=== PATIENT | male | born 1955 | race Caucasian/White ===

== ENCOUNTER 2021-08-27 11:11 | Emergency (ER) | payer MEDICARE ==
[~2021-08-27] VITALS: Ht 160 cm; Wt 38.6 kg
[2021-08-27] MEDS ORDERED: LISINOPRIL10 MG PO (11:55)
[2021-08-27] MEDS ORDERED: PROAIR HFA8.5 GM INH (11:55)
[2021-08-27 14:57] LABS: ABSOLUTE BASOPHILS 0.1 thou/uL (0.0-0.2); ABSOLUTE EOSINOPHILS 0.1 thou/uL (0.0-0.7); ABSOLUTE MONOCYTES 0.7 thou/uL (0.0-1.2); ABSOLUTE NEUTROPHILS 5.3 thou/uL (1.6-8.1); BASOPHILS 0.8 %; EOSINOPHILS 1.5 %; HEMATOCRIT 39.6 % (42.0-52.0); LYMPHOCYTES 14.1 %; MCH 35.3 pg (26.0-34.0); MCHC 35.2 g/dL (28.0-37.0); MCV 100.2 fL (80.0-100.0); MONOCYTES 9.3 %; MPV 8.2 fl. (7.2-11.1); NUCLEATED RBCS 0 /100WBC; PLATELET COUNT* 270 thou/uL (150-400); POLYS 74.3 %; RBC 3.96 mil/uL (4.50-6.00); RDW-CV 12.7 % (10.5-14.5); WBC 7.1 thou/uL (4.0-11.0)
[2021-08-27 15:09] LABS: CALCIUM 8.1 mg/dL (8.5-10.1); CREATININE 0.7 mg/dL (0.6-1.3); POTASSIUM 3.1 mmol/L (3.5-5.1)
[2021-08-27 15:20] LABS: ALBUMIN 3.1 g/dL (3.4-5.0); TOTAL BILIRUBIN 0.9 mg/dL (<0.1-1.0); TOTAL PROTEIN 6.6 g/dL (6.4-8.2)
--- NOTE | 2021-08-27 16:12 | EKG ---
[place] [address] ELECTROCARDIOGRAM REPORT Name: ARABELLA WOODS Room: [facility]#: [id number] Admission: 08/27/21 Attend Phys: Discharge: Date of : 53 Date of Service: 08/27/21 1456 Report #: [id number] THIS REPORT FOR: //name// [facility] ED Test Date: 2021-08-27 Test Time: 14:56:22 Pat Name: ARABELLA WOODS Department: Room: Gender: Rn Maternity: : 1955 Requested By: Surya Salinas Order Number: [id number] MD: Obed Simental Measurements Intervals [place] Rate: 74 P: 85 LA: 98 QRS: 85 QRSD: 101 T: 77 QT: 452 QTc: 502 Interpretive Statements Sinus rhythm Short LA interval Right atrial enlargement Possible anteroseptal infarct, age-indeterminate Borderline prolonged QT interval Artifact in lead(s) I,II,aVR,aVL,aVF,V2,V5,V6 and baseline wander in lead(s) V1 No previous ECG available for comparison Electronically Signed On 08-27-2021 16:12:42 [employer] by Obed Simental [email or web address] <ELECTRONICALLY SIGNED> By: Obed Simental MD, [facility] 08/27/21 1612 1456 1456 Obed Simental MD, [facility] /EPI
[2021-08-27 17:20] LABS: URINE BILIRUBIN NEGATIVE (Negative); URINE BLOOD TRACE (Negative); URINE CLARITY CLEAR; URINE COLOR YELLOW; URINE GLUCOSE-RANDOM NEGATIVE (Negative); URINE KETONES NEGATIVE (Negative); URINE LEUKOCYTES NEGATIVE (Negative); URINE NITRITE NEGATIVE (Negative); URINE PROTEIN NEGATIVE (Negative); URINE SPECIFIC GRAVITY <= 1.005 (1.005-1.030); URINE UROBILINOGEN 0.2 E.U./dl (0.2-1.0)
[2021-08-27 18:14] VITALS: BP 134/68
--- NOTE | 2021-08-29 17:57 | EKG ---
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1955 Requested By: Surya Salinas Order Number: [id number] Fady MD: Cezar Shannon Measurements Intervals [place] Rate: 73 P: 0 HI: 94 QRS: 85 QRSD: 93 T: 80 QT: 440 QTc: 485 Interpretive Statements Sinus rhythm Short HI interval Probable left atrial enlargement Anterior infarct, old, possible Compared to ECG 08/27/2021 14:56:22 No significant changes Electronically Signed On 08-29-2021 17:56:51 [employer] by Cezar Shannon [email or web address] <ELECTRONICALLY SIGNED> By: Cezar Shannon MD, FACC 08/29/21 1756 1607 1607 Cezar Shannon MD, FAC /EPI
== END 2021-08-27 18:15 | disposition home or self-care (01) ==
LOC: M.ERS 11:11
PROVIDERS: Emergency Medicine
DX: R53.1 Weakness (principal); E46 Unspecified protein-calorie malnutrition; R63.0 Anorexia; R06.02 Shortness of breath; I10 Essential (primary) hypertension; J44.9 Chronic obstructive pulmonary disease, unspecified; Z79.899 Other long term (current) drug therapy; Z88.0 Allergy status to penicillin; Z68.1 Body mass index [BMI] 19.9 or less, adult